=== PATIENT | female | born 1955 | race Caucasian/White ===

== ENCOUNTER 2019-02-13 05:46 | Day surgery (SDC) | payer OTHER ==
[2019-02-13] MEDS ORDERED: LR 1,000 ML IV SCH (06:02)
[2019-02-13] MEDS ORDERED: ceFAZolin 2 GM/DEXTROSE 100 ML IV ONE (06:02)
[2019-02-13] MEDS ORDERED: DEXAMETHASONE 10 MG/ML VIAL IVP ONE (06:02)
[2019-02-13] MEDS ORDERED: LR 1,000 ML IV ONE (06:04)
[2019-02-13] MEDS ORDERED: BUPIVACAINE 0.25% 30 ML SDV ONE (06:55)
[2019-02-13] MEDS ORDERED: MIDAZOLAM 2 MG/2 ML VIAL IVP ONE (07:02)
--- NOTE | 2019-02-13 07:13 | PDANEPAE ---
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 pre-diabetic - Renal History Hx Renal Disorders: No - Liver History Hx Hepatic Disorders: No - Neurological & Psychiatric Hx Hx Neurological and Psychiatric Disorders: Yes Neurological / Psychiatric History Comment: depression - Cancer History Hx Cancer: No - Congenital Disorder History Hx Congenital Disorders: No - GI History GERD: mild Hx Gastrointestinal Disorders: Yes Gastrointestinal History Comment: currently having gi issues d/t gallbladder - Other Health History Other Health History: wears glasses - Chronic Pain History Chronic Pain: Yes (left femoral nerve, nurses back, sacrum) - Surgical History Prior Surgeries: hysterectomy 15-20 yrs ago. left hip resurfacing for labral tear from horse accident with left femoral nerve injury during surgery ANE Review of Systems Review of Systems: - Exercise capacity METS (RN): 4 METS ANE Patient History - Allergies Allergies/Adverse Reactions: No Known Allergies Allergy (Verified 02/06/19 17:47) - Home Medications Home Medications: Aspirin 02/06/19 [Last Taken 02/06/19] Bioidentical Hormones 02/06/19 [Last Taken 02/13/19] CeleBREX 02/06/19 [Last Taken 02/06/19] CeleXA 20 MG 02/06/19 [Last Taken 02/13/19] Metformin HCl 02/06/19 [Last Taken 02/11/19] Vicodin 5-300 mg Tablet 02/06/19 [Last Taken 02/12/19] traMADol 02/06/19 [Last Taken 02/12/19] - NPO status NPO Since - Liquids (Date): 02/13/19 NPO Since - Liquids (Time): 04:30 NPO Since - Solids (Date): 02/12/19 NPO Since - Solids (Time): 20:00 - Anes Hx Anes Hx: slow to awaken from anesthesia - Smoking Hx Smoking Status: Former smoker - Family Anes Hx Family Hx Anesthesia Complications: none ANE Labs/Vital Signs - Vital Signs Blood Pressure: 157/92 Heart Rate: 70 Respiratory Rate: 15 O2 Sat (%): 97 Height: 157.48 cm Weight: 83.915 kg ANE Physical Exam - Airway Neck exam: decreased ROM Mallampati Score: Class 2 Mouth exam: normal dental/mouth exam - Pulmonary Pulmonary: no respiratory distress, no rales or rhonchi - Cardiovascular Cardiovascular: regular rate and rhythym, no murmur, rub, or gallop - ASA Status ASA Status: II ANE Anesthesia Plan Anesthesia Plan: general endotracheal anesthesia Specialized Airway: video laryngoscope
[2019-02-13] MEDS ORDERED: PROPOFOL 200 MG/20 ML VIAL ONE (07:19)
[2019-02-13] MEDS ORDERED: PROPOFOL/EMULSION 500 MG/50 ML BOTTLE IV ONE (07:19)
[2019-02-13] MEDS ORDERED: fentaNYL 250 MCG/5 ML INJ ONE (07:19)
[2019-02-13] MEDS ORDERED: GABAPENTIN 300 MG CAP PO ONE (07:21)
--- NOTE | 2019-02-13 07:22 | PDHPUP ---
History & Physical Update H&P update statement: This history and physical update is based on an assessment of the patient which was completed after admission or registration (within 24 hours), but prior to the surgery/procedure. H&P update: H&P reviewed & patient examined, no change in patient's condition since H&P completed
[2019-02-13] MEDS ORDERED: ROCURONIUM 50 MG/5 ML VIAL ONE (07:25)
[2019-02-13] MEDS ORDERED: GLYCOPYRROLATE 0.2 MG/1 ML VIAL ONE (07:25)
[2019-02-13] MEDS ORDERED: DEXAMETHASONE 4 MG/ML VIAL ONE (07:25)
[2019-02-13] MEDS ORDERED: HYDROCODONE/APAP 5/325 TAB PO PRN (08:22)
[2019-02-13] MEDS ORDERED: oxyCODONE IR 5 MG TAB PO PRN (08:22)
[2019-02-13] MEDS ORDERED: ACETAMINOPHEN 500 MG TAB PO PRN (08:22)
[2019-02-13] MEDS ORDERED: ONDANSETRON 4 MG/2 ML VIAL IVP PRN (08:22)
[2019-02-13] MEDS ORDERED: PROMETHAZINE HCL 25 MG/ML INJ IVP PRN (08:22)
[2019-02-13] MEDS ORDERED: NALOXONE HCL 0.4 MG/ML INJ IVP PRN (08:22)
[2019-02-13] MEDS ORDERED: fentaNYL 100 MCG/2 ML INJ IVP PRN (08:22)
[2019-02-13] MEDS ORDERED: HYDROmorphONE/DILAUDID 2 MG/ML INJ IVP PRN (08:22)
[2019-02-13] MEDS ORDERED: SUGAMMADEX SODIUM 200 MG/2 ML VIAL IVP ONE (08:31)
[2019-02-13] MEDS ORDERED: HYDROmorphONE/DILAUDID 1 MG/ML INJ IVP PRN (08:58)
--- NOTE | 2019-02-13 08:58 | POSTOPPROG ---
Post Op Note Date of Operation: 02/13/19 Surgeon: Alex Ruiz (, FACS) Lens Grinding Machine Operator: Omid Rodriguez RN-FA Anesthesiologist: Laura Gregorio MD Anesthesia: GET(General Endotracheal) Pre-op Diagnosis: biliary dyskinesia Post-op Diagnosis: chronic cholecystitis/umbilical hernia Procedure: lap cholecystectomy/repair umbilical hernia Findings: chronic cholecystitis/small umbilical hernia Inf/Abcess present in the surg proc area at time of surgery?: No EBL: Minimal (10ml) Bowel Protocol: N/A Clean Closure Performed: N/A Specimen(s): gallbladder intact
[2019-02-13] MEDS ORDERED: OXYCODONE/APAP 5/325 TAB PO PRN (08:59)
[2019-02-13] MEDS ORDERED: fentaNYL 100 MCG/2 ML INJ ONE (09:03)
--- NOTE | 2019-02-13 10:02 | GOP ---
[f rep st] OPERATIVE REPORT DATE OF OPERATION: 02/13/2019 SURGEON: Alex Ruiz MD, FACS ANESTHESIA: General endotracheal. ANESTHESIOLOGIST: Laura Gregorio M.D. PREOPERATIVE DIAGNOSIS: Biliary dyskinesia. POSTOPERATIVE DIAGNOSIS: 1. Chronic cholecystitis. 2. Umbilical hernia. PROCEDURE PERFORMED: 1. Laparoscopic cholecystectomy. 2. Repair of umbilical hernia. FINDINGS: Small umbilical hernia without incarceration. Chronic appearing cholecystitis with numerous adhesions between the omentum and the gallbladder which was partially intrahepatic. ESTIMATED BLOOD LOSS: 10 cc or less. DESCRIPTION OF PROCEDURE: After informed consent was obtained, the patient was brought to the operating room and placed under general anesthesia. The abdomen was prepped and draped in the usual fashion. Before proceeding, a time-out and identification of the patient was performed. 0.25% Marcaine was used to infiltrate the infraumbilical skin. A curvilinear incision was made and carried through the skin and subcutaneous tissues. Dissection was carried down to the umbilical stalk and this contained a small central umbilical hernia. The umbilical stalk was incised close to the fascia. The hernia was identified and measured approximately 8 mm in diameter. With ventral traction applied to the abdominal wall after the peritoneal cavity had been entered under direct visualization, a 12 mm port was gently passed into the hernial defect, dilating it to the appropriate size. A pneumoperitoneum was established with CO2 gas to a pressure of 15 mmHg. A 30 degrees scope was introduced and the peritoneal cavity was visualized. The gallbladder appeared chronically inflamed with numerous adhesions from the omentum near the hepatic flexure of the colon and the duodenum. The gallbladder was partially intrahepatic. Additional 5 mm ports were placed to the right of the falciform ligament in the subxiphoid position. Two right upper quadrant ports were placed , both under direct visualization. This allowed introduction of atraumatic grasping forceps. The gallbladder was gently elevated cephalad by the fundus and adhesions taken down between the omentum and the gallbladder. Subsequently , the infundibulum was grasped and manipulated anteriorly and posteriorly along the peritoneum to be dissected away from the cystic duct and artery using the Harmonic scalpel. The cystic artery was dispatched with a Harmonic scalpel. The cystic duct was left skeletonized entering directly into the gallbladder. It was doubly hemoclipped and divided. The gallbladder was then dissected away from the liver edge using the Harmonic scalpel with minimal bleeding. It was retrieved through the umbilical port site and submitted to pathology intact for permanent section. Hemostasis appeared secure in the operative field. The pneumoperitoneum was evacuated. All ports were removed. The umbilical hernia was repaired transversely with interrupted 0 Vicryl sutures. Subcutaneous tissues were approximated with 3-0 Vicryl suture and the skin was closed with 4- 0 Monocryl suture in a subcuticular fashion. Topical Dermabond was applied. The patient was returned and extubated to the recovery room in satisfactory condition. Needle, sponge and instrument count were correct. LEGAL SERVICE SPECIALIST SURGEON: DANIKA Jean. COMPLICATIONS: None. /[id number]/MODL MTDD
[2019-02-13] MEDS ORDERED: LABETALOL HCL 5 MG/ML 20 ML MDV ONE (11:25)
[2019-02-13] MEDS: LABETALOL HCL 20 MG/4 ML INJ IVP PRN ×2 (11:35→11:48)
[2019-02-13 12:17] VITALS: BP 185/107
--- NOTE | 2019-02-13 13:35 | POSTANESTH ---
Post Anesthetic Evaluation Cardiovascular Status: Similar to Pre-Op Cond Respiratory Status: Normal, Stable Level of Consciousness/Mental Status: Can Participate in Eval Pain Control: Adequate, Prn Tx Ordered Nausea/Vomiting Control: Adequate, Prn Tx Ordered Complications Possibly Related to Anesthesia: None Noted (Pt had hypertension on admission. Discussed metabolic syndrome. Pt. aware of increased BP. Agreed to f/u with PCP)
== END 2019-02-13 12:15 | disposition home or self-care (01) ==
LOC: FSGY 05:46
PROVIDERS: ATTEND Surgery
PROC: 0WQF0ZZ Repair Abdominal Wall, Open Approach (ICD-10-PCS; principal; 2019-02-13 07:30)
PROC: 0FT44ZZ Resection of Gallbladder, Percutaneous Endoscopic Approach (ICD-10-PCS; principal; 2019-02-13 07:30)
DX: K82.8 Other specified diseases of gallbladder (principal); K42.9 Umbilical hernia without obstruction or gangrene; E03.9 Hypothyroidism, unspecified; R73.03 Prediabetes
CPT/HCPCS: J0690; J1100; J2250; J2704; J3010